=== PATIENT | male | born 1960 | race Caucasian/White ===

== ENCOUNTER → 2017-12-12 | Outpatient (CLI) | payer MEDICAID | END | disposition home or self-care (01) | LOC: RAD 12:25 | PROVIDERS: ATTEND Nurse Practitioner Family | DX: S62.521A Displaced fracture of distal phalanx of right thumb, initial encounter for closed fracture (principal); M47.892 Other spondylosis, cervical region; M48.02 Spinal stenosis, cervical region; M47.896 Other spondylosis, lumbar region; M11.262 Other chondrocalcinosis, left knee; M11.261 Other chondrocalcinosis, right knee; M19.041 Primary osteoarthritis, right hand; M77.32 Calcaneal spur, left foot; M79.9 Soft tissue disorder, unspecified; X58.XXXA Exposure to other specified factors, initial encounter; Y93.89 Activity, other specified; Y92.89 Other specified places as the place of occurrence of the external cause; Y99.8 Other external cause status | CPT/HCPCS: 72040; 72100; 73130; 73562; 73630 ==

== ENCOUNTER 2018-01-26 09:16 | Emergency (ER) | payer SELFPAY ==
[~2018-01-26] VITALS: Ht 188 cm; Wt 160.0 kg
[2018-01-26 09:52] VITALS: BP 146/97
== END 2018-01-26 10:44 | disposition home or self-care (01) ==
LOC: ER 09:58
DX: Z13.89 Encounter for screening for other disorder (principal); I10 Essential (primary) hypertension; Z90.49 Acquired absence of other specified parts of digestive tract; Z90.89 Acquired absence of other organs; Z98.890 Other specified postprocedural states
CPT/HCPCS: 99281